=== PATIENT | female | born 1975 | race African-American/Black ===

== ENCOUNTER 2017-11-09 19:40 | Emergency (ER) | payer MEDICAID, OTHER ==
[~2017-11-09] VITALS: Ht 165.1 cm; Wt 81.8 kg
[~2017-11-09 19:40] MED LIST: PERC5TAB12 PO; Z.0.NO CURRENT MEDS
[2017-11-09 19:41] VITALS: BP 178/87; PULSE 88; RESP 16; TEMP 97.9; O2SAT 97
[2017-11-09] MEDS ORDERED: SODIUM CHLOR 0.9% 1000 ML INJ 1,000 ML IV ONE (19:57)
[2017-11-09] MEDS ORDERED: SODIUM CHLORIDE 0.9% FLUSH 10 ML FLUSH IVF PRN (20:00)
--- NOTE | 2017-11-09 20:17 | PD ---
HPI Chief Complaint: Related Problem Time Seen by Provider: 19:56 Travel History International Travel<30 days: No Contact w/Intl Traveler<30days: No Traveled to known affect area: No History of Present Illness HPI Patient is a 42 year old female who is [id number], presents to the emergency room with complaints of possible miscarriage. Patient thinks that her FDLMP was on September 03, 2017 which puts her at about 12 weeks . Reports that she noticed some vaginal spotting this morning, reports that bleeding has progressed. Patient reports no abdominal pain or cramping at this time, denies n/v. Patient reports that she had a miscarriage with her 5th at about this same time. Patient has not follow-up with PRODUCT SUPPORT TECHNICIAN yet, she was planning on going [facility] the [facility] in the following weeks for her new visit. Patient reports no complications with the first 4 pregnancies, reports that she delivered vaginally at full term. PFSH Past Medical History Heart Rhythm Problems: No Cardiac Catheterization: No Cardiovascular Problems: No High Cholesterol: No Congestive Heart Failure: No Diabetes: Yes Diminished Hearing: No Hypertension: No Myocardial Infarction: No ?: : 4 Para: 3 Past Surgical History Surgical History: No Previous Surgery Coronary Artery Bypass Graft: No Pacemaker: No Social History Alcohol Use: No Tobacco Use: No Substance Use: No Allergies-Medications (Allergen,Severity, Reaction): Coded Allergies: No Known Allergies (Verified Adverse Reaction, Unknown, 11/09/17) Reported Meds & Prescriptions Reported Meds & Active Scripts Active Review of Systems General / Constitutional: No: Fever Eyes: No: Visual changes HENT: No: Headaches Cardiovascular: No: Chest Pain or Discomfort Respiratory: No: Shortness of Breath Gastrointestinal: No: Nausea, Vomiting, Abdominal Pain Genitourinary: Positive: Vaginal Bleeding, No: Dysuria, Pelvic Pain, Flank Pain , Discharge, Dysmenorrhea, Menorrhagia, Metorrhagia Musculoskeletal: No: Pain Skin: No Rash Neurologic: No: Weakness Psychiatric: No: Depression Endocrine: No: Polydipsia Hematologic/Lymphatic: No: Easy Bruising Physical Exam Narrative GENERAL: NAD SKIN: Focused skin assessment warm/dry. HEAD: Atraumatic. Normocephalic. EYES: Pupils equal and round. No scleral icterus. No injection or drainage. ENT: No nasal bleeding or discharge. Mucous membranes pink and moist. NECK: Trachea midline. No JVD. CARDIOVASCULAR: Regular rate and rhythm. No murmur appreciated. RESPIRATORY: No accessory muscle use. Clear to auscultation. Breath sounds equal bilaterally. GASTROINTESTINAL: Abdomen soft, non-tender, nondistended. Hepatic and splenic margins not palpable. MUSCULOSKELETAL: No obvious deformities. No clubbing. No cyanosis. No edema. NEUROLOGICAL: Awake and alert. No obvious cranial nerve deficits. Motor grossly within normal limits. Normal speech. PSYCHIATRIC: Appropriate mood and affect; insight and judgment normal. Data Data Last Documented VS Vital Signs Date Time Temp Pulse Resp B/P (MAP) Pulse Ox O2 Delivery O2 Flow Rate FiO2 11/09/17 20:49 20 11/09/17 19:41 97.9 88 178/87 (117) 97 Room Air Orders Orders Beta Hcg (Quant/Titer) (11/09/17 19:57) Complete Blood Count With Diff (11/09/17 19:57) Basic Metabolic Panel (Bmp) (11/09/17 19:57) Complete Rh (11/09/17 19:57) Type And Screen (11/09/17 19:57) Urinalysis - C+S If Indicated (11/09/17 19:57) Iv Access Insert/Monitor (11/09/17 19:57) Ecg Monitoring (11/09/17 19:57) Sodium Chloride 0.9% Flush (Ns Flush) (11/09/17 20:00) Sodium Chlor 0.9% 1000 Ml Inj (Ns 1000 M (11/09/17 19:57) Ed Urine Pregnancytest Poc (11/09/17 19:57) Us Pelvis (Ques Pr/Ect)W Trans (11/09/17 ) Ed Discharge Order (11/09/17 22:49) Labs Laboratory Tests Test 11/09/17 20:10 11/09/17 20:15 Urine Color YELLOW Urine Turbidity CLEAR Urine pH 6.0 Urine Specific Roundup 1.032 Urine Protein TRACE mg/dL Urine Glucose (UA) NEG mg/dL Urine Ketones NEG mg/dL Urine Occult Blood MOD Urine Nitrite NEG Urine Bilirubin NEG Urine Urobilinogen 2.0 MG/DL Urine Leukocyte Esterase NEG Urine RBC 5 /hpf Urine WBC 1 /hpf Urine Squamous Epithelial Cells 2 /hpf Urine Hyaline Casts 6 /lpf Urine Mucus FEW /lpf Microscopic Urinalysis Comment CULT NOT INDICATED White Blood Count 6.7 TH/MM3 Red Blood Count 4.56 MIL/MM3 Hemoglobin 12.0 GM/DL Hematocrit 36.6 % Mean Corpuscular Volume 80.2 FL Mean Corpuscular Hemoglobin 26.3 PG Mean Corpuscular Hemoglobin Concent 32.8 % Red Cell Distribution Width 13.5 % Platelet Count 299 TH/MM3 Mean Platelet Volume 8.4 FL Neutrophils (%) (Auto) 54.2 % Lymphocytes (%) (Auto) 37.3 % Monocytes (%) (Auto) 5.7 % Eosinophils (%) (Auto) 1.8 % Basophils (%) (Auto) 1.0 % Neutrophils # (Auto) 3.6 TH/MM3 Lymphocytes # (Auto) 2.5 TH/MM3 Monocytes # (Auto) 0.4 TH/MM3 Eosinophils # (Auto) 0.1 TH/MM3 Basophils # (Auto) 0.1 TH/MM3 CBC Comment DIFF FINAL Differential Comment Blood Urea Nitrogen 11 MG/DL Creatinine 0.75 MG/DL Random Glucose 83 MG/DL Calcium Level 8.6 MG/DL Sodium Level 137 MEQ/L Potassium Level 3.8 MEQ/L Chloride Level 106 MEQ/L Carbon Dioxide Level 22.9 MEQ/L Anion Gap 8 MEQ/L Estimat Glomerular Filtration Rate 102 ML/MIN Human Chorionic Gonadotropin, Quant 34987 MIU/ML MDM Medical Decision Making Medical Screen Exam Complete: Yes Emergency Medical Condition: Yes Medical Record Reviewed: Yes Interpretation(s) Vital Signs Date Time Temp Pulse Resp B/P (MAP) Pulse Ox O2 Delivery O2 Flow Rate FiO2 11/09/17 19:41 97.9 88 16 178/87 (117) 97 Room Air Differential Diagnosis Threatened miscarriage versus vs inevitable miscarriage vs early vaginal bleeding Narrative Course During the course of the patients emergency department visit, the patients history, examination, and differential diagnosis were reviewed with the patient. The patient was placed on a global manager with oximetry and frequent blood pressure monitoring. The patient had an IV access obtained and blood work sent for analysis. The patient was initially provided IVF The patients laboratory studies were reviewed and remarkable for: Laboratory Tests Test 11/09/17 20:10 11/09/17 20:15 Urine Color YELLOW (YELLW/STRAW) Urine Turbidity CLEAR (CLEAR) Urine pH 6.0 (5.0-8.5) Urine Specific Roundup 1.032 (1.002-1.035) Urine Protein TRACE mg/dL (NEG-TRACE) Urine Glucose (UA) NEG mg/dL (NEG) Urine Ketones NEG mg/dL (NEG) Urine Occult Blood MOD (NEG) Urine Nitrite NEG (NEG) Urine Bilirubin NEG (NEG) Urine Urobilinogen 2.0 MG/DL (LESS THAN Urine Leukocyte Esterase NEG (NEG) Urine RBC 5 /hpf (0-3) Urine WBC 1 /hpf (0-5) Urine Squamous Epithelial Cells 2 /hpf (0-5) Urine Hyaline Casts 6 /lpf (RARE) Urine Mucus FEW /lpf (OCC) Microscopic Urinalysis Comment CULT NOT INDICATED White Blood Count 6.7 TH/MM3 (4.0-11.0) Red Blood Count 4.56 MIL/MM3 (4.00-5.30) Hemoglobin 12.0 GM/DL (11.6-15.3) Hematocrit 36.6 % (35.0-46.0) Mean Corpuscular Volume 80.2 FL (80.0-100.0) Mean Corpuscular Hemoglobin 26.3 PG (27.0-34.0) Mean Corpuscular Hemoglobin Concent 32.8 % (32.0-36.0) Red Cell Distribution Width 13.5 % (11.6-17.2) Platelet Count 299 TH/MM3 (150-450) Mean Platelet Volume 8.4 FL (7.0-11.0) Neutrophils (%) (Auto) 54.2 % (16.0-70.0) Lymphocytes (%) (Auto) 37.3 % (9.0-44.0) Monocytes (%) (Auto) 5.7 % (0.0-8.0) Eosinophils (%) (Auto) 1.8 % (0.0-4.0) Basophils (%) (Auto) 1.0 % (0.0-2.0) Neutrophils # (Auto) 3.6 TH/MM3 (1.8-7.7) Lymphocytes # (Auto) 2.5 TH/MM3 (1.0-4.8) Monocytes # (Auto) 0.4 TH/MM3 (0-0.9) Eosinophils # (Auto) 0.1 TH/MM3 (0-0.4) Basophils # (Auto) 0.1 TH/MM3 (0-0.2) CBC Comment DIFF FINAL Differential Comment Blood Urea Nitrogen 11 MG/DL (7-18) Creatinine 0.75 MG/DL (0.50-1.00) Random Glucose 83 MG/DL (74-106) Calcium Level 8.6 MG/DL (8.5-10.1) Sodium Level 137 MEQ/L (136-145) Potassium Level 3.8 MEQ/L (3.5-5.1) Chloride Level 106 MEQ/L (98-107) Carbon Dioxide Level 22.9 MEQ/L (21.0-32.0) Anion Gap 8 MEQ/L (5-15) Estimat Glomerular Filtration Rate 102 ML/MIN (>89) Human Chorionic Gonadotropin, Quant [id number] MIU/ML (0-5) Radiology studies were reviewed and remarkable for: Last Impressions Pelvis Ultrasound 11/09/17 0000 Signed Impressions: Service Date/Time: October 21:26 - CONCLUSION: 1. Intrauterine with 6 weeks size pole. Viability cannot be confirmed; no heart rate is documented. 2. No evidence of free fluid. Hossein Lutz MD HCG quant [id number] Pelvic us with iup at 6 weeks with no fhr. patient with early vs demise. patient was given a copy of her studies at discharge. Discussed need for pelvic rest until she is seen and cleared by her PRODUCT SUPPORT TECHNICIAN. Understands need for repeat hCG Quant in 48 hours. Signs and symptoms of when to return to the emergency room was reviewed patient in detail. Diagnosis Primary Impression: Miscarriage, threatened, early Patient Instructions: General Instructions Additional Instructions: Please provide patient with a copy of their lab work and studies at discharge* * Please follow up with your primary care doctor in 2-3 days Return to the ER if symptoms worsen or progress Return to the ER as needed Please follow-up with your PRODUCT SUPPORT TECHNICIAN as soon as possible Please have your hCG Quant repeated in 48 hour Pelvic rest until you are seen and cleared by planning assistant Disposition: 01 DISCHARGE HOME Condition: Stable Yadira Coleman DO Nov 09, 2017 20:17
[2017-11-09 20:32] LABS: AUTOMATED NEUTROPHIL # 3.6 TH/MM3 (1.8-7.7); BASOPHIL # 0.1 TH/MM3 (0-0.2); EOSINOPHIL # 0.1 TH/MM3 (0-0.4); EOSINOPHIL % 1.8 % (0.0-4.0); HEMATOCRIT 36.6 % (35.0-46.0); LYMPH % 37.3 % (9.0-44.0); LYMPHOCYTE # 2.5 TH/MM3 (1.0-4.8); MEAN CELL VOLUME 80.2 FL (80.0-100.0); MEAN CORPUSCULAR HEMOGLOBIN 26.3 PG (27.0-34.0); MEAN CORPUSCULAR HGB CONC 32.8 % (32.0-36.0); MEAN PLATELET VOLUME 8.4 FL (7.0-11.0); MONO % 5.7 % (0.0-8.0); MONOCYTE # 0.4 TH/MM3 (0-0.9); NEUT % 54.2 % (16.0-70.0); PLATELET COUNT 299 TH/MM3 (150-450); RED BLOOD COUNT 4.56 MIL/MM3 (4.00-5.30); RED CELL DISTRIBUTION WIDTH 13.5 % (11.6-17.2); WHITE BLOOD COUNT 6.7 TH/MM3 (4.0-11.0)
[2017-11-09 20:51] LABS: BILIRUBIN, URINE NEG (NEG); BLOOD, URINE MOD (NEG); GLUCOSE,URINE NEG (NEG); HYALINE CAST, URINE 6 /lpf (RARE); KETONE, URINE NEG (NEG); MUCUS URINE FEW /lpf (OCC); NITRITE,URINE NEG (NEG); SQUAMOUS EPITHELIAL CELL URINE 2 /hpf (0-5); URINE COLOR YELLOW (YELLW/STRAW); URINE LEUKOCYTE ESTERASE NEG (NEG)
[2017-11-09 21:02] LABS: BICARBONATE 22.9 MEQ/L (21.0-32.0); CALCIUM 8.6 MG/DL (8.5-10.1); CREATININE 0.75 MG/DL (0.50-1.00)
--- NOTE | 2017-11-09 22:22 | RADRPT ---
EXAM DATE/TIME: 11/09/2017 21:26 [facility] COMPARISON: No previous studies available for comparison. INDICATIONS : Bleeding with . LAB(S): Beta-hC MEDICAL HISTORY : . Miscarriage x 1. Diabetes. SURGICAL HISTORY : None. ENCOUNTER: Initial ACUITY: 1 day PAIN SCORE: 0/10 LOCATION: Bilateral pelvis MEASUREMENTS: UTERUS: 11.7 x 6.8 x 6.0 cm ENDOMETRIAL STRIPE: 20 mm RIGHT OVARY: 3.4 x 2.0 x 1.6 cm LEFT OVARY: 3.6 x 2.6 x 2.1 cm . FINDINGS: Intrauterine with gestational sac is identified. There is a large yolk sac and a echogenic structure believed to represent a pole which measures 6 mm, characteristic of 6 week, 3 day ge station. No heart rate seen by Doppler or visual assessment. Ovaries have homogeneous echotex ture. No evidence of free fluid in the cul-de-sac or adnexal regions. CONCLUSION: 1. Intrauterine with 6 weeks size pole. Viability cannot be confirmed; no hear t rate is documented. 2. No evidence of free fluid. Hossein Lutz MD on November 09, 2017 at 22:16 Board Certified Radiologist. This report was verified electronically.
== END 2017-11-09 22:58 | disposition home or self-care (01) ==
LOC: NEPD 19:40
DX: O20.0 Threatened abortion (principal); O24.911 Unspecified diabetes mellitus in pregnancy, first trimester; Z3A.12 12 weeks gestation of pregnancy
CPT/HCPCS: 76700; 76817; 80048; 81001; 84702; 84703; 85025; 86850; 86900; 86901; 96360; 96361; 99285; J7030

== ENCOUNTER 2017-11-14 15:36 | Emergency (ER) | payer OTHER ==
[~2017-11-14] VITALS: Ht 165.1 cm; Wt 81.8 kg
[2017-11-14 15:37] VITALS: BP 171/83; PULSE 97; RESP 16; TEMP 98.3; O2SAT 95
--- NOTE | 2017-11-14 16:50 | PD ---
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 Patient was seen by the family practice residents and was sent to the emergency department. She was seen here on . She was diagnosed with threatened versus inevitable . She has a last menstrual period of September 03, 2017. Her beta hCG was 16,458. Ultrasound showed 6 week gestation, but no heart tones. She states that since then she has continued vaginal bleeding. She states she gets to 5-6 pads a day. She states she had a small sac come out of her vagina on 11/11. The patient is concerned he she had a previous miscarriage were she had to have an emergent D&C and blood transfusions. The patient reports she is a G6, P4 with one previous miscarriage. She reports some abdominal cramping as well. Moderate severity. PFSH Past Medical History Heart Rhythm Problems: No Cardiac Catheterization: No Cardiovascular Problems: No High Cholesterol: No Congestive Heart Failure: No Diabetes: Yes Diminished Hearing: No Hypertension: No Myocardial Infarction: No LMP: 09/03/2017 : 6 Para: 4 Miscarriage: 1 Past Surgical History Coronary Artery Bypass Graft: No Pacemaker: No Social History Alcohol Use: No Tobacco Use: No Substance Use: No Allergies-Medications (Allergen,Severity, Reaction): Coded Allergies: No Known Allergies (Verified Adverse Reaction, Unknown, 11/14/17) Reported Meds & Prescriptions Reported Meds & Active Scripts Active No Active Prescriptions or Reported Medications Review of Systems Except as stated in HPI: all other systems reviewed are Neg Physical Exam Narrative GENERAL: Well-nourished, well-developed female patient, ambulatory. Afebrile. SKIN: Focused skin assessment warm/dry. HEAD: Normocephalic. Atraumatic. EYES: No scleral icterus. No injection or drainage. NECK: Supple, trachea midline. No JVD or lymphadenopathy. CARDIOVASCULAR: Regular rate and rhythm without murmurs, gallops, or rubs. RESPIRATORY: Breath sounds equal bilaterally. No accessory muscle use. Lungs sounds are clear to auscultation. GASTROINTESTINAL: Abdomen soft, non-tender, nondistended. MUSCULOSKELETAL: No cyanosis, or edema. BACK: Nontender without obvious deformity. No CVA tenderness. Data Data Last Documented VS Vital Signs Date Time Temp Pulse Resp B/P (MAP) Pulse Ox O2 Delivery O2 Flow Rate FiO2 11/14/17 16:35 96 18 11/14/17 15:37 98.3 171/83 (112) 95 Orders Orders Beta Hcg (Quant/Titer) (11/14/17 16:42) Complete Blood Count With Diff (11/14/17 16:42) Basic Metabolic Panel (Bmp) (11/14/17 16:42) Us Pelvis (Ques Preg/Ectopic) (11/14/17 ) Labs Laboratory Tests Test 11/14/17 16:50 White Blood Count 5.4 TH/MM3 Red Blood Count 4.27 MIL/MM3 Hemoglobin 11.4 GM/DL Hematocrit 34.3 % Mean Corpuscular Volume 80.4 FL Mean Corpuscular Hemoglobin 26.7 PG Mean Corpuscular Hemoglobin Concent 33.1 % Red Cell Distribution Width 13.7 % Platelet Count 323 TH/MM3 Mean Platelet Volume 8.7 FL Neutrophils (%) (Auto) 54.5 % Lymphocytes (%) (Auto) 37.0 % Monocytes (%) (Auto) 5.7 % Eosinophils (%) (Auto) 2.2 % Basophils (%) (Auto) 0.6 % Neutrophils # (Auto) 2.9 TH/MM3 Lymphocytes # (Auto) 2.0 TH/MM3 Monocytes # (Auto) 0.3 TH/MM3 Eosinophils # (Auto) 0.1 TH/MM3 Basophils # (Auto) 0.0 TH/MM3 CBC Comment DIFF FINAL Differential Comment Blood Urea Nitrogen 12 MG/DL Creatinine 0.79 MG/DL Random Glucose 98 MG/DL Calcium Level 8.9 MG/DL Sodium Level 139 MEQ/L Potassium Level 3.5 MEQ/L Chloride Level 107 MEQ/L Carbon Dioxide Level 26.3 MEQ/L Anion Gap 6 MEQ/L Estimat Glomerular Filtration Rate 96 ML/MIN Human Chorionic Gonadotropin, Quant 2358 MIU/ML MDM Medical Decision Making Medical Screen Exam Complete: Yes Emergency Medical Condition: Yes Medical Record Reviewed: Yes Interpretation(s) Last Impressions Pelvis Ultrasound 11/14/17 0000 Signed Impressions: Service Date/Time: Tuesday, November 14, 2017 17:26 - CONCLUSION: Interim spontaneous . No retained products or acute complication demonstrated. Daquan Mays MD Differential Diagnosis Threatened versus spontaneous versus anemia Narrative Course 42-year-old female presents to the emergency department sent by the family practice physicians for repeat ultrasound, beta hCG. CBC, BMP, beta hCG, ultrasound are ordered and pending. Upon review of chart, patient's blood type is B+. CBC shows hemoglobin 11.4, hematocrit 34.3. BMP shows no acute abnormality. Beta HCG is 2358. This is decreased from 16,458. US shows Interim spontaneous . No retained products or acute complication demonstrated. Patient appears well on exam. 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 She'll be given referral to [facility] now. She verbalizes agreement and understanding. She is return here for any acute worsening of symptoms. The patient was discharged in stable condition with instructions, including return instructions and follow up instructions. Diagnosis Primary Impression: Spontaneous Referrals: [facility] call for appointment Patient Instructions: General Instructions, Miscarriage (ED) Additional Instructions: Follow-up with gynecology. Return to the emergency department for any acute worsening of symptoms. Med/Other Pt SpecificInfo: No Change to Meds Scripts No Active Prescriptions or Reported Meds Disposition: 01 DISCHARGE HOME Condition: Stable DevinCassie Nov 14, 2017 16:50
[2017-11-14 17:35] LABS: AUTOMATED NEUTROPHIL # 2.9 TH/MM3 (1.8-7.7); BASOPHIL % 0.6 % (0.0-2.0); EOSINOPHIL # 0.1 TH/MM3 (0-0.4); EOSINOPHIL % 2.2 % (0.0-4.0); HEMATOCRIT 34.3 % (35.0-46.0); HEMOGLOBIN 11.4 GM/DL (11.6-15.3); MEAN CELL VOLUME 80.4 FL (80.0-100.0); MEAN CORPUSCULAR HEMOGLOBIN 26.7 PG (27.0-34.0); MEAN CORPUSCULAR HGB CONC 33.1 % (32.0-36.0); MEAN PLATELET VOLUME 8.7 FL (7.0-11.0); MONO % 5.7 % (0.0-8.0); MONOCYTE # 0.3 TH/MM3 (0-0.9); NEUT % 54.5 % (16.0-70.0); PLATELET COUNT 323 TH/MM3 (150-450); RED BLOOD COUNT 4.27 MIL/MM3 (4.00-5.30); RED CELL DISTRIBUTION WIDTH 13.7 % (11.6-17.2); WHITE BLOOD COUNT 5.4 TH/MM3 (4.0-11.0)
[2017-11-14 17:44] LABS: BICARBONATE 26.3 MEQ/L (21.0-32.0); CALCIUM 8.9 MG/DL (8.5-10.1); CREATININE 0.79 MG/DL (0.50-1.00)
--- NOTE | 2017-11-14 18:23 | RADRPT ---
EXAM DATE/TIME: 11/14/2017 17:26 [facility] COMPARISON: US PELVIS (QUEST PREG/ECTOPIC) W/TRANSVAG, November 09, 2017, 21:26. INDICATIONS : Bleeding and pain with . LAB(S): Beta-hC MEDICAL HISTORY : . Miscarriage x 1. Diabetes. SURGICAL HISTORY : Dilation and curettage. ENCOUNTER: Subsequent ACUITY: 1 week PAIN SCORE: 5/10 LOCATION: Bilateral pelvis MEASUREMENTS: UTERUS: 10.5 x 6.2 x 5.1 cm ENDOMETRIAL STRIPE: 10 mm RIGHT OVARY: 2.5 x 1.7 x 1.7 cm LEFT OVARY: 3.1 x 2.2 x 2.0 cm FREE FLUID: No CROWN RUMP LENGTH: Non visualized. = WKS DAYS FHR: Non visualized. BPM FINDINGS: UTERUS: The myometrium has homogeneous echotexture without mass. RIGHT OVARY: Ovary contains no mass or significant cystic lesion. LEFT OVARY: Ovary contains no mass or significant cystic lesion. MISCELLANEOUS: No free fluid. CONCLUSION: Interim spontaneous . No retained products or acute complication demonstrated. Daquan Mays MD on November 14, 2017 at 18:18 Board Certified Radiologist. This report was verified electronically.
== END 2017-11-14 18:51 | disposition home or self-care (01) ==
LOC: NEPD 15:36
DX: O03.9 Complete or unspecified spontaneous abortion without complication (principal); O24.911 Unspecified diabetes mellitus in pregnancy, first trimester; Z3A.01 Less than 8 weeks gestation of pregnancy
CPT/HCPCS: 76700; 80048; 84702; 85025; 99284